=== PATIENT | female | born 1995 | race Caucasian/White ===

== ENCOUNTER 2017-03-05 17:28 | Emergency (ER) | payer SELFPAY ==
[~2017-03-05] VITALS: Ht 170.2 cm; Wt 59.9 kg
[2017-03-05 17:45] VITALS: BP 119/76
== END 2017-03-05 18:22 | disposition left against medical advice (07) ==
LOC: ER 17:28
DX: N89.8 Other specified noninflammatory disorders of vagina (principal); Z53.21 Procedure and treatment not carried out due to patient leaving prior to being seen by health care provider